=== PATIENT | female | born 1985 | race Caucasian/White ===

== ENCOUNTER 2017-01-04 11:32 | Emergency (ER) | payer SELFPAY ==
[~2017-01-04] VITALS: Ht 167.6 cm; Wt 68.0 kg
[2017-01-04 12:39] LABS: Urine Bilirubin Negative (Negative); Urine Blood TRACE /uL (Negative); Urine Color Yellow (Yellow); Urine Glucose Normal (Normal); Urine Ketone Negative (Negative); Urine Nitrite Negative (Negative); Urine RBC <1 /hpf (0 - 4); Urine Squamous Epithelial Cell FEW /hpf (<5); Urine Urobilinogen Normal (Negative); Urine pH 6.5 (5.0-8.0)
[2017-01-04 13:06] LABS: Basophils # (auto) 0 uL; Basophils % (auto) 0.6 % (0.0-2.0); Eosinophils # (auto) 0.2 uL; Eosinophils % (auto) 2.3 % (0.0-7.0); Hematocrit 40.1 % (36.0-46.0); Hemoglobin 13.5 g/dL (12.2-16.2); Lymphocytes # (auto) 1.8 uL; Lymphocytes % (auto) 24.7 % (10.0-50.0); Mean Corpuscular Hemoglobin 32.7 pg (28.0-32.0); Mean Corpuscular Hgb Conc. 33.8 g/dL (32.0-36.0); Mean Corpuscular Volume 96.8 fL (80.0-100.0); Monocytes # (auto) 0.9 uL; Monocytes % (auto) 12.7 % (0.0-12.0); Neutrophils # (auto) 4.4 uL; Neutrophils % (auto) 59.7 % (37.0-80.0); Platelet Count (auto) 492 10^3/uL (140-450); Red Cell Distribution Width 16.2 % (11.6-16.0); White Blood Cell 7.4 10^3/uL (4.4-10.8)
[2017-01-04 13:43] LABS: Albumin 3.6 g/dL (3.4-5.0); BUN/Creatinine Ratio 10.7; Calcium 8.7 mg/dL (8.5-10.1); Magnesium 2.1 mg/dL (1.6-2.6)
[2017-01-04 13:47] LABS: Potassium 2.7 mmol/L (3.5-5.1)
[2017-01-04 13:48] LABS: Bilirubin, Total 0.3 mg/dL (0.2-1.0); Total Protein 9.4 g/dL (6.4-8.2)
[2017-01-04] MEDS ORDERED: POTASSIUM CHL 20 Meq TABLET PO ONE ×2 (13:50→14:00)
[2017-01-04] MEDS ORDERED: IOHEXOL 350 MG/ML 100ML IJ ONE (14:59)
[2017-01-04] MEDS ORDERED: cefTRIAXone 1GM/50ML D5W 50 ML IV ONE (18:15)
[2017-01-04] MEDS ORDERED: ACETAMINOPHEN 500 MG TAB PO ONE (18:15)
[2017-01-04] MEDS ORDERED: ACETAMINOPHEN 325 MG TAB PO ONE (21:30)
[2017-01-04 22:42] VITALS: BP 128/89
== END 2017-01-04 22:55 | disposition short-term general hospital (02) ==
LOC: ER 11:32
DX: G40.909 Epilepsy, unspecified, not intractable, without status epilepticus (principal); J18.1 Lobar pneumonia, unspecified organism; I62.00 Nontraumatic subdural hemorrhage, unspecified; R40.4 Transient alteration of awareness; R41.2 Retrograde amnesia; F10.10 Alcohol abuse, uncomplicated; E87.6 Hypokalemia; R21 Rash and other nonspecific skin eruption; F17.210 Nicotine dependence, cigarettes, uncomplicated
CPT/HCPCS: 36415; 70450; 71275; 80053; 81001; 83735; 84484; 84702; 85025; 85379; 87040; 93005; 96365; 99285; G0434; J0696; Q9967